=== PATIENT | female | born 1995 | race Caucasian/White ===

== ENCOUNTER 2016-10-20 17:21 | Emergency (ER) | payer OTHER, BC ==
[~2016-10-20] VITALS: Ht 177.8 cm; Wt 76.8 kg
[2016-10-20 17:46] VITALS: BP 139/86; PULSE 92; RESP 16; TEMP 99.4; O2SAT 100
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
[2016-10-20] MEDS ORDERED: BIRTH CONTROL PILLS PO (19:19)
[2016-10-20] MEDS ORDERED: EXCETAB PO (19:19)
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
[2016-10-20] MEDS ORDERED: CYCL1TAB29 PO (19:30)
[2016-10-20] MEDS ORDERED: IBUP800T23 PO (19:30)
== END 2016-10-20 19:44 | disposition home or self-care (01) ==
LOC: PHED 17:21 → PHEFT 19:44
DX: M25.511 Pain in right shoulder (principal); V49.59XA Passenger injured in collision with other motor vehicles in traffic accident, initial encounter
CPT/HCPCS: 73000; 73564; 99284